=== PATIENT | male | born 1955 | race Caucasian/White ===

== ENCOUNTER 2019-08-13 14:31 | Emergency (ER) | payer OTHER ==
[~2019-08-13] VITALS: Ht 172.7 cm; Wt 96.0 kg
[2019-08-13 14:40] VITALS: BP 98/61
--- NOTE | 2019-08-13 15:01 | PHYS DOC ---
Adult General Chief Complaint Chief Complaint: HIP PAIN HPI HPI 64-year-old male presents with left hip pain. The patient was stepping up into his truck is ago and the step at ice on it. The patient slipped and fell straight down onto his buttocks. He is continuing to have left-sided hip pain in the posterior area. He is able to walk, but it is more painful. The patient is concerned because he's had bilateral hip replacements with revision in 2018. He has tried ibuprofen and Tylenol at home without much relief. He wants to make sure there is not a problem with the hardware or another fracture. Review of Systems Review of Systems Constitutional: Denies fever or chills [] Eyes: Denies change in visual acuity, redness, or eye pain [] HENT: Denies nasal congestion or sore throat [] Respiratory: Denies cough or shortness of breath [] Cardiovascular: No additional information not addressed in HPI [] GI: Denies abdominal pain, nausea, vomiting, bloody stools or diarrhea [] : Denies dysuria or hematuria [] Musculoskeletal: Left hip and buttocks pain [] Integument: Denies rash or skin lesions [] Neurologic: Denies headache, focal weakness or sensory changes [] Endocrine: Denies polyuria or polydipsia [] All other systems were reviewed and found to be within normal limits, except as documented in this note. Allergies Allergies Allergies Coded Allergies Type Severity Reaction Last Updated Verified No Known Drug Allergies 08/13/19 No Physical Exam Physical Exam Constitutional: Well developed, well nourished, no acute distress, non-toxic appearance. [] HENT: Normocephalic, atraumatic, bilateral external ears normal, oropharynx moist, no oral exudates, nose normal. [] Eyes: PERRLA, EOMI, conjunctiva normal, no discharge. [] Neck: Normal range of motion, no tenderness, supple, no stridor. [] Cardiovascular:Heart rate regular rhythm, no murmur [] Lungs & Thorax: Bilateral breath sounds clear to auscultation [] Abdomen: Bowel sounds normal, soft, no tenderness, no masses, no pulsatile masses. [] Skin: Warm, dry, no erythema, no rash. [] Back: Tenderness over the sacrum on the left sacroiliac joint.[] Extremities: No tenderness, no cyanosis, no clubbing, ROM intact, no edema. [] Neurologic: Alert and oriented X 3, normal motor function, normal sensory function, no focal deficits noted. [] Psychologic: Affect normal, judgement normal, mood normal. [] EKG EKG [] Radiology/Procedures Radiology/Procedures [] Impressions: Examination: HIP LEFT 2V WITH PELVIS History: Fall, pain Comparison/Correlation: None Findings: Frontal view of the pelvis was obtained. Frontal view of the left hip and frog leg lateral view left hip were obtained. Bilateral hip joint prostheses are present. No acute fracture or bone destruction. No loosening evident involving the left hip joint prosthesis. Right hip joint prosthesis was not fully included for purposes of this exam. Sacroiliac joints are unremarkable. Impression: No acute process. Consider further evaluation if an occult process process is a persistent concern. Electronically signed by: Bruce Thompson MD (08/13/2019 3:59 PM) [id number] DICTATED AND SIGNED BY: BRUCE THOMPSON MD DATE: 08/13/19 1559 CC: MARY TORREZ DO; PCP,NO ~ Course & Med Decision Making Course & Med Decision Making Pertinent Labs and Imaging studies reviewed. (See chart for details) The patient's x-rays negative for fracture. I believe he is just bruised up. I will discharge him on a short course of [place] 5/325. He is stable for discharge at this time. [] Dragon Disclaimer Dragon Disclaimer This electronic medical record was generated, in whole or in part, using a voice recognition dictation system. Departure Departure: Impression: Primary Impression: Hip pain, bilateral Disposition: 01 HOME, SELF-CARE Condition: STABLE Referrals: PCP,NO (PCP) Patient Instructions: Hip Pain Scripts Hydrocodone Bit/Acetaminophen (NORCO 5-325 TABLET) 1 Each Tablet 1 TAB PO PRN Q6HRS PRN for PAIN, #10 TAB 0 Refills Prov: MARY TORREZ DO 08/13/19 MARY TORREZ DO Aug 13, 2019 15:01
[2019-08-13] MEDS ORDERED: HYDR-3165 PO (15:54)
[2019-08-13] MEDS ORDERED: HYDROcodone/APAP 5/325MG 1 TAB TABLET PO ONE (16:00)
--- NOTE | 2019-08-13 16:02 | RAD ---
Examination: HIP LEFT 2V WITH PELVIS History: Fall, pain Comparison/Correlation: None Findings: Frontal view of the pelvis was obtained. Frontal view of the left hip and frog leg lateral view left hip were obtained. Bilateral hip joint prostheses are present. No acute fracture or bone destruction. No loosening evident involving the left hip joint prosthesis. Right hip joint prosthesis was not fully included for purposes of this exam. Sacroiliac joints are unremarkable. Impression: No acute process. Consider further evaluation if an occult process process is a persistent concern. Electronically signed by: Fredy Judd MD (08/13/2019 3:59 PM) [id number]
== END 2019-08-13 16:14 | disposition home or self-care (01) ==
LOC: ER 14:31
DX: G89.11 Acute pain due to trauma (principal); M25.552 Pain in left hip; M25.551 Pain in right hip; W01.0XXA Fall on same level from slipping, tripping and stumbling without subsequent striking against object, initial encounter; Y93.89 Activity, other specified; Y92.89 Other specified places as the place of occurrence of the external cause; Y99.8 Other external cause status
CPT/HCPCS: 73502; 99283

== ENCOUNTER 2019-08-22 15:55 | Emergency (ER) | payer OTHER ==
[~2019-08-22] VITALS: Ht 172.7 cm; Wt 96.0 kg
[~2019-08-22 15:55] MED LIST: HYDR-3165 PO
[2019-08-22 16:41] VITALS: BP 97/62
[2019-08-22] MEDS ORDERED: HYDR-3165 PO (17:06)
--- NOTE | 2019-08-22 17:06 | PHYS DOC ---
Past History Past Medical History: Depression, Diabetes, Hypertension Past Surgical History: Hip Replacement Additional Past Surgical Histo: BILATERAL HIP REPLACEMENTS, RIGHT ROTATOR CUFF Alcohol Use: None Adult General Chief Complaint Chief Complaint: HIP PAIN [facility] HPI Patient is a 64-year-old male who presents with complaint of left hip pain and stating that it feels like his hip is been popping out at night. Patient was seen here a few weeks ago after injuring his hip and had x-rays done. Patient states that he does not have a primary care doctor and is hoping to get a referral to an orthopedist. Patient states that he has difficulty with sleeping at night due to level of pain. He denies any further injuries since the fall.[] Review of Systems Review of Systems Constitutional: Denies fever or chills [] Respiratory: Denies cough or shortness of breath [] Cardiovascular: No additional information not addressed in HPI [] GI: Denies abdominal pain, nausea, vomiting or diarrhea [] Musculoskeletal: Positive left hip pain [] Integument: Denies rash or skin lesions [] Allergies Allergies Allergies Coded Allergies Type Severity Reaction Last Updated Verified No Known Drug Allergies 08/13/19 No Physical Exam Physical Exam Constitutional: Well developed, well nourished, no acute distress, non-toxic appearance. [] Cardiovascular:Heart rate regular rhythm, no murmur [] Lungs & Thorax: Bilateral breath sounds clear to auscultation [] Extremities: Examination of left hip demonstrates no shortening or rotation. Patient does report to some pain with internal and external rotation of the hip. [] Neurologic: Alert and oriented X 3, no focal deficits noted. [] Current Patient Data Vital Signs Vital Signs Date Time Temp Pulse Resp B/P (MAP) Pulse Ox O2 Delivery O2 Flow Rate FiO2 08/22/19 16:41 57 18 97/62 (74) 100 EKG EKG [] Radiology/Procedures Radiology/Procedures [] Course & Med Decision Making Course & Med Decision Making Pertinent Labs and Imaging studies reviewed. (See chart for details) [] Dragon Disclaimer Dragon Disclaimer This electronic medical record was generated, in whole or in part, using a voice recognition dictation system. Departure Departure: Impression: Primary Impression: Chronic hip pain Disposition: 01 HOME, SELF-CARE Condition: STABLE Referrals: PCP,[facility]ETTA (PCP) CLARENCE SANTIAGO MD Patient Instructions: Hip Pain Additional Instructions: Call to schedule follow-up appointment with orthopedist for further evaluation. Scripts Hydrocodone Bit/Acetaminophen (NORCO 5-325 TABLET) 1 Each Tablet 1 TAB PO PRN Q6HRS PRN for PAIN, #12 TAB 0 Refills Prov: JANET SANDERSON Jr. DO 08/22/19 Problem Qualifiers Primary Impression: Chronic hip pain Laterality: left Qualified Codes: M25.552 - Pain in left hip; G89.29 - Other chronic pain JANET SANDERSON Jr. DO Aug 22, 2019 17:06
== END 2019-08-22 17:20 | disposition home or self-care (01) ==
LOC: ER 15:55
DX: G89.29 Other chronic pain (principal); M25.552 Pain in left hip; F32.9 Major depressive disorder, single episode, unspecified; E11.9 Type 2 diabetes mellitus without complications; I10 Essential (primary) hypertension
CPT/HCPCS: 99283

== ENCOUNTER 2021-02-21 09:48 | Emergency (ER) | payer SELFPAY ==
[~2021-02-21] VITALS: Ht 172.7 cm; Wt 96.0 kg
--- NOTE | 2021-02-21 10:12 | PHYS DOC ---
Past History Past Medical History: Depression, Diabetes, Hypertension (XAVI RODRÍGUEZ APRN) Past Surgical History: Hip Replacement Additional Past Surgical Histo: BILATERAL HIP REPLACEMENTS, RIGHT ROTATOR CUFF (XAVI RODRÍGUEZ APRN) Alcohol Use: None (XAVI RODRÍGUEZ APRN) Adult General Chief Complaint Chief Complaint: MECHANICAL FALL HPI HPI Patient is a 66 year old male who reports he had fallen today, landing on his left hip. States he has a history of bilateral hip replacement, also within the lateral revision. States he continues to have some discomfort in his left hip, states he just wants to make sure that his hip is in place. Patient reports he has not take any medication for discomfort. He has not not been to stand up at home after his fall, but was able to stand after EMS helped him up. States he has been able to walk however had some discomfort in his hip still. Denies any paresthesia. Denies any loss conscious. Denies any additional complaints. States he tripped which caused him to fall. (XAVI RODRÍGUEZ APRN) Review of Systems Review of Systems Constitutional: Denies fever or chills [] Eyes: Denies change in visual acuity, redness, or eye pain [] HENT: Denies nasal congestion or sore throat [] Respiratory: Denies cough or shortness of breath [] Cardiovascular: No additional information not addressed in HPI [] GI: Denies abdominal pain, nausea, vomiting, bloody stools or diarrhea [] : Denies dysuria or hematuria [] Musculoskeletal: Denies back pain. Reports pain to his left hip with decreased range of motion Integument: Denies rash or skin lesions [] Neurologic: Denies headache, focal weakness or sensory changes [] Endocrine: Denies polyuria or polydipsia [] All other systems were reviewed and found to be within normal limits, except as documented in this note. (XAVI RODRÍGUEZ APRN) Allergies Allergies Allergies Coded Allergies Type Severity Reaction Last Updated Verified No Known Drug Allergies 08/13/19 No (XAVI RODRÍGUEZ APRN) Physical Exam Physical Exam Constitutional: Well developed, well nourished, no acute distress, non-toxic appearance. [] HENT: Normocephalic, atraumatic, bilateral external ears normal, oropharynx moist, no oral exudates, nose normal. [] Eyes: PERRLA, EOMI, conjunctiva normal, no discharge. [] Neck: Normal range of motion, no tenderness, supple, no stridor. [] Cardiovascular:Heart rate regular rhythm, no murmur [] Lungs & Thorax: Bilateral breath sounds clear to auscultation [] Abdomen: Bowel sounds normal, soft, no tenderness, no masses, no pulsatile masses. [] Skin: Warm, dry, no erythema, no rash. [] Back: No tenderness, no CVA tenderness. [] Extremities: No tenderness, no cyanosis, no clubbing, ROM intact, no edema. [] Full range of motion to ankle, knee. Able to raise bilateral legs from independently, with decreased range of motion, which he reports is similar to what his normal range of motion is. Circulation intact. Neurologic: Alert and oriented X 3, normal motor function, normal sensory function, no focal deficits noted. [] Psychologic: Affect normal, judgement normal, mood normal. [] (XAVI RODRÍGUEZ APRN) Current Patient Data Vital Signs Vital Signs Date Time Temp Pulse Resp B/P (MAP) Pulse Ox O2 Delivery O2 Flow Rate FiO2 02/21/21 10:01 98.8 57 16 94/70 (78) 96 (XAVI RODRÍGUEZ APRN) EKG EKG [] (XAVI RODRÍGUEZ APRN) Radiology/Procedures Radiology/Procedures []EXAM: Pelvis and bilateral hips, 5 views. HISTORY: Pain. COMPARISON: None. FINDINGS: A frontal view the pelvis and frontal and frog-leg views of both hips are obtained. There are bilateral hip arthroplasties in expected position. 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 There is no evidence of instrumentation loosening. There is mild lumbar scoliosis. There is degenerative endplate remodeling and facet arthropathy predominantly at the lumbosacral junction. IMPRESSION: 1. Bilateral hip arthroplasties unchanged in appearance. 2. Degenerative change at the lumbosacral junction. Electronically signed by: Katja Guerrier MD (02/21/2021 10:24 AM) [id number] DICTATED AND SIGNED BY: KATJA GUERRIER MD DATE: 02/21/21 1022 (XAVI RODRÍGUEZ APRN) Heart Score C/O Chest Pain: N/A Risk Factors: Risk Factors: DM, Current or recent (<one month) smoker, HTN, HLP, family history of CAD, obesity. Risk Scores: Risk Factors: DM, Current or recent (<one month) smoker, HTN, HLP, family history of CAD, obesity. (XAVI RODRÍGUEZ APRN) Course & Med Decision Making Course & Med Decision Making Pertinent Labs and Imaging studies reviewed. (See chart for details) [] Given history of fall, with discomfort when trying to move, will do imaging. Limited results, without acute fracture, dislocation, or abnormality, believe patient safe for discharge. Patient reports he does feel better, he does walk with a cane at times at home. He feels good about going home at this time. Will provide short course of pain medications and recommend patient follow-up with his primary care for additional. Patient agreed with this plan Reviewed [facility], most recent narcotic prescription July of this year. Did recently have a tramadol prescription from the [place] [facility] 4 days ago. Regular clonazepam per [facility] in primary care. (XAVI RODRÍGUEZ APRN) Course & Med Decision Making I was the Attending physician on the above date of service of this patient. This patient was evaluated, examined, treated, and dispositioned from the emergency department by the mid-level practitioner. Although I was working at the time , no assistance was requested. Electronically signed, Pilar Paez DO (PILAR PAEZ DO) Tima Disclaimer Tima Disclaimer This electronic medical record was generated, in whole or in part, using a voice recognition dictation system. (XAVI RODRÍGUEZ APRN) Departure Departure: Impression: Primary Impression: Left hip pain Additional Impression: Fall from standing Disposition: HOME / SELF CARE / HOMELESS Condition: GOOD Referrals: PCP,NO (PCP) Patient Instructions: Fall Prevention and Home Safety, Hip Pain Additional Instructions: As discussed, follow-up with your primary care provider as needed for additional pain medications. Take Tylenol or ibuprofen as needed for discomfort. You may take the pain medications as prescribed. As we discussed also, consider using a cane to help improve your stability and prevent further falls. Scripts Hydrocodone/Acetaminophen (Hydrocodone-Acetamin 5-325 mg) 1 Each Tablet 1 EACH PO Q6HRS PRN for PAIN for 3 Days, #12 TAB Prov: XAVI RODRÍGUEZ APRN 02/21/21 Problem Qualifiers Additional Impression: Fall from standing Encounter type: initial encounter Qualified Codes: W19.XXXA - Unspecified fall, initial encounter XAVI RODRÍGUEZ APRN Feb 21, 2021 10:12 PILAR PAEZ DO Feb 22, 2021 07:11
[2021-02-21 10:20] VITALS: BP 94/70
--- NOTE | 2021-02-21 10:26 | RAD ---
EXAM: Pelvis and bilateral hips, 5 views. HISTORY: Pain. COMPARISON: None. FINDINGS: A frontal view the pelvis and frontal and frog-leg views of both hips are obtained. There a re bilateral hip arthroplasties in expected position. There is stable evidence of left acetabulum pro trusio. There is no evidence of instrumentation loosening. There is mild lumbar scoliosis. There is d egenerative endplate remodeling and facet arthropathy predominantly at the lumbosacral junction. IMPRESSION: 1. Bilateral hip arthroplasties unchanged in appearance. 2. Degenerative change at the lumbosacral junction. Electronically signed by: Katja Phan MD (02/21/2021 10:24 AM) [id number]
[2021-02-21] MEDS ORDERED: HYDROcodone/APAP 5/325MG 1 TAB TABLET PO ONE (10:30)
[2021-02-21] MEDS ORDERED: HYDR-2759 PO (10:55)
== END 2021-02-21 11:00 | disposition home or self-care (01) ==
LOC: ER 09:48
DX: M25.552 Pain in left hip (principal); I10 Essential (primary) hypertension; E11.9 Type 2 diabetes mellitus without complications; W01.0XXA Fall on same level from slipping, tripping and stumbling without subsequent striking against object, initial encounter; Y93.89 Activity, other specified; Y92.89 Other specified places as the place of occurrence of the external cause; Y99.8 Other external cause status
CPT/HCPCS: 73521; 99283

== ENCOUNTER 2021-03-05 17:56 | Emergency (ER) | payer OTHER ==
[~2021-03-05] VITALS: Ht 172.7 cm; Wt 96.0 kg
[~2021-03-05 17:56] MED LIST changes: +HYDR-2759 PO
[2021-03-05 17:58] VITALS: BP 156/66
--- NOTE | 2021-03-05 18:51 | PHYS DOC ---
Past History Past Medical History: Depression, Diabetes, Hypertension (SHABNAM TAYLOR APRN) Past Surgical History: Hip Replacement Additional Past Surgical Histo: BILATERAL HIP REPLACEMENTS, RIGHT ROTATOR CUFF (SHABNAM TAYLOR APRN) Alcohol Use: None (SHABNAM TAYLOR APRN) General Adult EDM: Chief Complaint: MECHANICAL FALL HPI: HPI: Patient is a 66-year-old male who presents with left shoulder, left hip, posterior head pain after a fall. Patient states he was getting out of his truck when he stepped wrong and fell and hit the back of his head. Patient de nies loss of consciousness. Denies neck or back pain. Denies blood thinners. Patient states "I thought I should probably be seen since I was having a lot of pain in my shoulder and hip". Denies taking anything for pain prior to arrival. History of hypertension, diabetes, depression. (SHABNAM TAYLOR APRN) Review of Systems: Review of Systems: Constitutional: Denies fever or chills Eyes: Denies change in visual acuity HENT: Denies nasal congestion or sore throat Respiratory: Denies cough or shortness of breath Cardiovascular: Denies chest pain or edema GI: Denies abdominal pain, nausea, vomiting, bloody stools or diarrhea : Denies dysuria Musculoskeletal: Reports left shoulder and left hip pain Integument: Denies rash Neurologic: Denies headache, focal weakness or sensory changes Endocrine: Denies polyuria or polydipsia Lymphatic: Denies swollen glands Psychiatric: Reports history of depression and anxiety (SHABNAM TAYLOR APRN) Allergies: Allergies: Allergies Coded Allergies Type Severity Reaction Last Updated Verified No Known Drug Allergies 08/13/19 No (SHABNAM TAYLOR APRN) Physical Exam: PE: Constitutional: Well developed, well nourished, no acute distress, non-toxic appearance. [] HENT: Normocephalic, atraumatic, bilateral external ears normal, oropharynx moist, no oral exudates, nose normal. [] Eyes: PERRLA, EOMI, conjunctiva normal, no discharge. [] Neck: Normal range of motion, no tenderness, supple, no stridor. [] Cardiovascular:Heart rate regular rhythm, no murmur [] Lungs & Thorax: Bilateral breath sounds clear to auscultation [] Abdomen: Bowel sounds normal, soft, no tenderness, no masses, no pulsatile masses. [] Skin: Warm, dry, no erythema, no rash. [] Back: No tenderness, no CVA tenderness. [] Extremities: Left shoulder tenderness, no cyanosis, no clubbing, ROM intact, no edema. [] Neurologic: Alert and oriented X 3, normal motor function, normal sensory function, no focal deficits noted. [] Psychologic: Affect normal, judgement normal, mood normal. [] (SHABNAM TAYLOR APRN) Current Patient Data: Vital Signs: Vital Signs Date Time Temp Pulse Resp B/P (MAP) Pulse Ox O2 Delivery O2 Flow Rate FiO2 03/05/21 17:58 67 18 156/66 99 (SHABNAM TAYLOR APRN) EKG: EKG: [] (SHABNAM TAYLOR APRN) Radiology/Procedures: Radiology/Procedures: [] (SHABNAM TAYLOR APRN) Radiology/Procedures: PROCEDURE: SHOULDER 2+V LEFT Study: XR SHOULDER_LEFT 2+ VIEWS Indication: Fall. Comparison: None. Findings: No traumatic malalignment or displaced fracture. Mild acromioclavicular more so than glenohumeral joint arthrosis. The partially assessed left-sided ribs are grossly intact. Carotid calcific atherosclerosis on the left. Impression: 1. No acute fracture or traumatic malalignment. Mild arthrosis. 2. Incidental carotid calcific atherosclerosis on the left. Electronically signed by: TASHA ELLISON MD (03/05/2021 7:06 PM) [facility] PROCEDURE: HIP BILATERAL WITH PELVIS Study: XR HIP (WITH OR WITHOUT PELVIS) 1 VIEW Indication: Fall. Bilateral hip pain. Comparison: 02/21/2021 Findings: Bilateral total hip arthroplasty constructs. No hardware or periprosthetic fracture. No evidence for loosening. Unchanged chronic ossific fragments/osseous remodeling at the left more so than right greater trochanters. No evidence for an obturator ring fracture. The adequately assessed sacral arcuate lines are continuous. Incompletely evaluated degenerative changes at the lower lumbar spine. Impression: No acute fracture identified at either hip or elsewhere through the partially assessed pelvis. No change in configuration of bilateral total hip arthroplasty constructs from 02/21/2021. Electronically signed by: TASHA ELLISON MD (03/05/2021 7:04 PM) [facility] PROCEDURE: CT HEAD AND CERVICAL SPINE WO EXAMINATION: CT HEAD AND C-SPINE WO CLINICAL HISTORY: Fall, headache and neck pain TECHNIQUE: Serial axial images without IV contrast were obtained from the vertex to the foramen magnum. CT of the cervical spine without IV contrast. Spiral, high resolution axial images were obtained from the skull base to the cervicothoracic junction with sagittal and coronal planar reconstructions. CT Dose Reduction Employed: One or more of the following individualized dose reduction techniques were utilized for this examination: 1. Automated exposure control 2. Adjustment of the mA and/or kV according to patient size 3. Use of iterative reconstruction technique. COMPARISON: None FINDINGS: BRAIN: Acute Change: No evidence of an acute contusion or other acute parenchymal process. Hemorrhage: No evidence of acute intracranial hemorrhage. Mass Lesion/Mass Effect: No evidence of intracranial mass or extraaxial fluid collection. No significant mass effect. Chronic Change: Scattered patchy foci of hypoattenuation in the supratentorial white matter, nonspecific but likely represents mild microvascular ischemia. Atherosclerotic calcification of the anterior and posterior circulation. Parenchyma: Moderate generalized volume loss, asymmetrically prominent in the frontal lobes. Ventricles: Ventricular enlargement concordant with degree of parenchymal volume loss. Paranasal Sinuses and Skull Base: Visualized paranasal sinuses clear. No evidence of acute calvarial fracture. Probable nasal bone fracture, likely remote given lack of associated soft tissue swelling. Mild anterior nasal septal deviation to the left. C-SPINE: Alignment: Straightening of the normal cervical lordosis, likely positional. Osseous Structures: No evidence of acute fracture or spondylolisthesis. Remote ununited fracture through the T1 spinous process. Heterogeneous mineralization in the lower cervical and partially visualized thoracic vertebral bodies with 6 mm focal lucency in the anterior inferior C5 vertebral body, cannot exclude a marrow infiltrative process. Degenerative Changes: Multilevel degenerative disc disease, moderate to severe in the lower cervical spine. Moderate to severe multilevel neural foraminal narrowing. No definite high-grade osseous spinal stenosis. Multilevel facet arthropathy. Cervical Soft Tissues: No prevertebral soft tissue swelling. Vascular calcifications. IMPRESSION: BRAIN: No evidence of acute intracranial abnormality. C-SPINE: No evidence of acute osseous abnormality involving the cervical spine. Findings suspicious for a marrow infiltrative process in the cervicothoracic spine as described with possible lytic lesion in the C5 vertebral body. Recommend clinical correlation and consider nonemergent outpatient MRI for further evaluation as indicated. Multilevel degenerative findings as described. Electronically signed by: Erick Torres DO (03/05/2021 7:06 PM) [facility] (SEEMA EARL) Heart Score: C/O Chest Pain: No Risk Factors: Risk Factors: DM, Current or recent (<one month) smoker, HTN, HLP, family history of CAD, obesity. Risk Scores: Score 0 - 3: 2.5% MACE over next 6 weeks - Discharge Home Score 4 - 6: 20.3% MACE over next 6 weeks - Admit for Clinical Observation Score 7 - 10: 72.7% MACE over next 6 weeks - Early Invasive Strategies (SHABNAM TAYLOR APRN) Course & Med Decision Making: Course & Med Decision Making Pertinent Labs and Imaging studies reviewed. (See chart for details) [] 66-year-old male presents with left shoulder, hip, posterior hip pain after a recent fall. Patient was getting out of his truck when he stepped incorrectly and fell backwards. Patient reports hitting his head. Denies loss of consciousness. Denies blood thinners. Denies visual changes. Patient is alert and oriented. Left hip, left shoulder, CT head and spine ordered to rule out acute abnormalities or fractures. (SHABNAM TAYLOR APRN) Dragon Disclaimer: Dragon Disclaimer: This electronic medical record was generated, in whole or in part, using a voice recognition dictation system. (SHABNAM TAYLOR APRN) Departure Departure: Impression: Primary Impression: Left shoulder pain Qualified Codes: M25.512 - Pain in left shoulder Additional Impression: Left hip pain Disposition: HOME / SELF CARE / HOMELESS Condition: STABLE Referrals: PCP,NO (PCP) Patient Instructions: RICE - Routine Care for Injuries, [id number] Additional Instructions: No fractures seen on imaging. Use [id number] acetaminophen and ibuprofen alternating as needed for pain and muscle soreness. Return to emergency department if pain is unmanageable. Attending Co-Sign Attending Co-Sign The patient was seen and interviewed as well as examined at the bedside. The chart was reviewed. The case was discussed. Agree with the plan of care. (LYRIC CASILLAS MD) Attending Signature Attending Signature I have participated in the care of this patient and I have reviewed and agree with all pertinent clinical information above including history, exam, and recommendations. (VINNYLYRIC COWAN ASHLEE APRN Mar 05, 2021 18:50 LYRIC CASILLAS MD Mar 05, 2021 19:04 SEEMA EARL Mar 05, 2021 19:54
[2021-03-05] MEDS ORDERED: HYDROcodone/APAP 5/325MG 1 TAB TABLET PO ONE (19:00)
--- NOTE | 2021-03-05 19:06 | RAD ---
Study: XR HIP (WITH OR WITHOUT PELVIS) 1 VIEW Indication: Fall. Bilateral hip pain. Comparison: 02/21/2021 Findings: Bilateral total hip arthroplasty constructs. No hardware or periprosthetic fracture. No evidence for loosening. Unchanged chronic ossific fragments/osseous remodeling at the left more so than right grea ter trochanters. No evidence for an obturator ring fracture. The adequately assessed sacral arcuate l shukri are continuous. Incompletely evaluated degenerative changes at the lower lumbar spine. Impression: No acute fracture identified at either hip or elsewhere through the partially assessed pelvis. No dave nge in configuration of bilateral total hip arthroplasty constructs from 02/21/2021. Electronically signed by: TASHA ELLISON MD (03/05/2021 7:04 PM) [facility]
--- NOTE | 2021-03-05 19:09 | RAD ---
Study: XR SHOULDER_LEFT 2+ VIEWS Indication: Fall. Comparison: None. Findings: No traumatic malalignment or displaced fracture. Mild acromioclavicular more so than glenohumeral austen nt arthrosis. The partially assessed left-sided ribs are grossly intact. Carotid calcific atherosclerosis on the left. Impression: 1. No acute fracture or traumatic malalignment. Mild arthrosis. 2. Incidental carotid calcific atherosclerosis on the left. Electronically signed by: TASHA ELLISON MD (03/05/2021 7:06 PM) [facility]
--- NOTE | 2021-03-05 19:09 | RAD ---
EXAMINATION: CT HEAD AND C-SPINE WO CLINICAL HISTORY: Fall, headache and neck pain TECHNIQUE: Serial axial images without IV contrast were obtained from the vertex to the foramen magnum. CT of the cervical spine without IV contrast. Spiral, high resolution axial images were obtained from the skull base to the cervicothoracic junction with sagittal and coronal planar reconstructions. CT Dose Reduction Employed: One or more of the following individualized dose reduction techniques wer e utilized for this examination: 1. Automated exposure control 2. Adjustment of the mA and/or kV ac cording to patient size 3. Use of iterative reconstruction technique. COMPARISON: None FINDINGS: BRAIN: Acute Change: No evidence of an acute contusion or other acute parenchymal process. Hemorrhage: No evidence of acute intracranial hemorrhage. Mass Lesion/Mass Effect: No evidence of intracranial mass or extraaxial fluid collection. No signific ant mass effect. Chronic Change: Scattered patchy foci of hypoattenuation in the supratentorial white matter, nonspeci fic but likely represents mild microvascular ischemia. Atherosclerotic calcification of the anterior and posterior circulation. Parenchyma: Moderate generalized volume loss, asymmetrically prominent in the frontal lobes. Ventricles: Ventricular enlargement concordant with degree of parenchymal volume loss. Paranasal Sinuses and Skull Base: Visualized paranasal sinuses clear. No evidence of acute calvarial fracture. Probable nasal bone fracture, likely remote given lack of associated soft tissue swelling. Mild anterior nasal septal deviation to the left. C-SPINE: Alignment: Straightening of the normal cervical lordosis, likely positional. Osseous Structures: No evidence of acute fracture or spondylolisthesis. Remote ununited fracture thro ugh the T1 spinous process. Heterogeneous mineralization in the lower cervical and partially visualiz ed thoracic vertebral bodies with 6 mm focal lucency in the anterior inferior C5 vertebral body, tony ot exclude a marrow infiltrative process. Degenerative Changes: Multilevel degenerative disc disease, moderate to severe in the lower cervical spine. Moderate to severe multilevel neural foraminal narrowing. No definite high-grade osseous spina l stenosis. Multilevel facet arthropathy. Cervical Soft Tissues: No prevertebral soft tissue swelling. Vascular calcifications. IMPRESSION: BRAIN: No evidence of acute intracranial abnormality. C-SPINE: No evidence of acute osseous abnormality involving the cervical spine. Findings suspicious for a marrow infiltrative process in the cervicothoracic spine as described with possible lytic lesion in the C5 vertebral body. Recommend clinical correlation and consider nonemerge nt outpatient MRI for further evaluation as indicated. Multilevel degenerative findings as described. Electronically signed by: Erick Torres DO (03/05/2021 7:06 PM) [facility]
== END 2021-03-05 20:04 | disposition home or self-care (01) ==
LOC: ER 17:56
DX: M25.512 Pain in left shoulder (principal); M25.552 Pain in left hip; R51.9 Headache, unspecified; I10 Essential (primary) hypertension; F32.9 Major depressive disorder, single episode, unspecified; E11.9 Type 2 diabetes mellitus without complications; W18.09XA Striking against other object with subsequent fall, initial encounter; Y93.89 Activity, other specified; Y92.89 Other specified places as the place of occurrence of the external cause; Y99.8 Other external cause status
CPT/HCPCS: 70450; 72125; 73030; 73521; 99285